=== PATIENT | male | born 1970 | race Caucasian/White ===

== ENCOUNTER 2018-07-21 10:59 | Emergency (ER) | payer BC ==
[2018-07-21 11:37] VITALS: BP 139/93
[2018-07-21] MEDS ORDERED: Sulfamethox/Trimethoprim DS 800/160* TAB PO ONE (11:51)
--- NOTE | 2018-07-21 11:53 | ED ---
Upper Extremity Pain - HPI Summary HPI Summary: 48 yr old male bitten on right tricep by bug three days ago. He has had progressive redness, some swelling over the right tricep area and some lymph nodes in right axilla. No fever, chills. He does not feel ill. No other complaints. - History of Current Complaint Chief Complaint: Toño Stated Complaint: SKIN CONCERN Time Seen by Provider: 07/21/18 11:40 - Allergies/Home Medications Allergies/Adverse Reactions: Allergies Allergy/AdvReac Type Severity Reaction Status Date / Time No Known Allergies Allergy Verified 07/21/18 11:29 Home Medications: Home Medications Bp Medication 1 tab PO DAILY 07/21/18 [History] Famotidine TAB* [Pepcid 20 MG TAB*] 20 mg PO DAILY 07/21/18 [History Confirmed 07/21/18] PMH/Surg Hx/FS Hx/Imm Hx Cardiovascular History: Reports: Hx Hypertension Infectious Disease History: No Infectious Disease History: Denies: Traveled Outside the [place] in Last 30 Days - Family History Known Family History: Positive: None - Social History Occupation: Unemployed Alcohol Use: 3-5 beer daily, but quit about 2 weeks ago Substance Use Type: Reports: None Smoking Status (MU): Heavy Every Day Tobacco Smoker Type: Cigarettes Amount Used/How Often: 3/4 PPD Review of Systems Constitutional: Negative Positive: Other - redness and swelling over the right tricep area All Other Systems Reviewed And Are Negative: Yes Physical Exam Triage Information Reviewed: Yes Vital Signs On Initial Exam: Initial Vitals Temp Pulse Resp BP Pulse Ox 98.1 F 83 14 139/93 100 07/21/18 11:31 07/21/18 11:31 07/21/18 11:31 07/21/18 11:31 07/21/18 11:31 Vital Signs Reviewed: Yes Appearance: Positive: Well-Appearing, No Pain Distress Skin: Positive: Other - redness about 2 inch diameter with induration right tricep area, no fluctuance. No erythema migrans rash. He has one tender lymph node right axilla. No streaking up the arm. Eyes: Positive: EOMI Neck: Positive: Nontender Respiratory/Lung Sounds: Positive: Clear to Auscultation, Breath Sounds Present Cardiovascular: Positive: RRR, Pulses are Symmetrical in both Upper and Lower Extremities - symmetric pulses both wrists.. Negative: Murmur Musculoskeletal: Positive: Strength/ROM Intact Neurological: Positive: Sensory/Motor Intact, Alert, Oriented to Person Place, Time, CN Intact II-III Psychiatric: Positive: Normal - Adrian Coma Scale Best Eye Response: 4 - Spontaneous Best Motor Response: 6 - Obeys Commands Best Verbal Response: 5 - Oriented Coma Scale Total: 15 Diagnostics - Vital Signs Vital Signs Temp Pulse Resp BP Pulse Ox 07/21/18 11:31 98.1 F 83 14 139/93 100 - Laboratory Lab Statement: Any lab studies that have been ordered have been reviewed, and results considered in the medical decision making process. Course/Dx - Course Course Of Treatment: 48 yr old male with cellulitis and possible early abscess right tricep. no fluctuance at this point. Rx Bactrim DS. Referred to primary care. - Diagnoses Provider Diagnoses: Cellulitis Discharge - Sign-Out/Discharge Documenting (check all that apply): Patient Departure All imaging exams completed and their final reports reviewed: No Studies - Discharge Plan Condition: Good Disposition: HOME Prescriptions: Sulfamethox/Trimethoprim DS* [Bactrim DS 800/160 TAB*] 1 tab PO BID #20 tab Patient Education Materials: Cellulitis (ED), Hypertension (ED) Referrals: No Primary Care Phys,NOPCP [Primary Care Provider] - [facility]Outside] - 2 Days - Billing Disposition and Condition Condition: GOOD Disposition: Home
== END 2018-07-21 12:20 | disposition home or self-care (01) ==
LOC: UCCORT 10:59
DX: L03.113 Cellulitis of right upper limb (principal); I10 Essential (primary) hypertension; F17.210 Nicotine dependence, cigarettes, uncomplicated
CPT/HCPCS: 99212; A9270-GY; G0463

== ENCOUNTER → 2020-01-24 11:11 | Emergency (ER) | payer SELFPAY ==
--- NOTE | 2020-01-24 13:40 | UC ---
Abdominal Pain Male HPI - HPI Summary HPI Summary: 49 yo with a hx of ulcer disease based on upper endoscopy 4 years ago. He is uncertain if he had H. pylori, thinks possible. He took PPI for some time, then transitioned to otc pepcid, but has daily symptoms most of the time. For the past 2 months, sx have increased with increased nocturnal pain, early satiety, weight loss. He continues to smoke although decreased to 1/2 ppd, has decreased alcohol to 2 beers every few days, but continues to drink a pot of coffee per day. Had emesis 2 weeks ago. States no hx of pancreatitis, and he has not been tested for gallstones. Pain occasionally radiates to the back, not always. Weight is low, tends to lose and gain, but reports no consistent weight loss. No dysphagia. No NSAID's, uses acetaminophen for aches and pains. - History of Current Complaint Chief Complaint: UCAbdominalPain Stated Complaint: ABD PAIN Time Seen by Provider: 01/24/20 13:28 Hx Obtained From: Patient Onset/Duration: Gradual Onset, Lasting Weeks Timing: Intermittent Episodes Lasting: Severity Initially: Moderate Severity Currently: Moderate Pain Intensity: 2 Location: Epigastric Radiates: Yes Radiates to: Back - on occasion Character: Burning, Sharp Aggravating Factor(s): Food Alleviating Factor(s): Meds Associated Signs And Symptoms: Positive: Cough, Diarrhea - stools are always loose. Negative: Diaphoresis, Fever, Chest Pain, Back Pain, Constipation, Blood in Stool, Urinary Symptoms, Decreased Appetite - Risk Factors Testicular Torsion: Negative Cardiac Risk Factors: Smoking, Family History - Allergies/Home Medications Allergies/Adverse Reactions: Allergies Allergy/AdvReac Type Severity Reaction Status Date / Time No Known Allergies Allergy Verified 01/24/20 11:56 Home Medications: Home Medications Bp Medication 1 tab PO DAILY 07/21/18 [History] Famotidine TAB* [Pepcid 20 MG TAB*] 20 mg PO TID PRN 07/21/18 [History Confirmed 07/21/18] Pantoprazole TAB * [Protonix TAB*] 40 mg PO DAILY #30 tab 01/24/20 [Rx] PMH/Surg Hx/FS Hx/Imm Hx - Additional Past Medical History Additional PMH: chronic smoking Previously Healthy: No GI/ History: Gastroesophageal Reflux, Ulcer - Surgical History Surgical History: Yes Surgery Procedure, Year, and Place: sinus surgery - Family History Known Family History: Positive: Cardiac Disease, Other - mother has gastritis - Social History Occupation: Employed Full-time Lives: With Family Alcohol Use: Occasionally Substance Use Type: None Smoking Status (MU): Heavy Every Day Tobacco Smoker Type: Cigarettes Amount Used/How Often: 1/2 ppd Household Exposure Type: Cigarettes Review of Systems All Other Systems Reviewed And Are Negative: Yes Constitutional: Positive: Fatigue, Other - malaise Skin: Positive: Negative Eyes: Positive: Negative ENT: Positive: Negative Respiratory: Positive: Cough Cardiovascular: Negative: Palpitations, Chest Pain Gastrointestinal: Positive: Abdominal Pain - epigastric, Vomiting - on occasion , Nausea Motor: Positive: Negative Neurovascular: Positive: Negative Musculoskeletal: Positive: Negative Neurological/Mental Status: Positive: Negative Psychological: Positive: Negative Is Patient Immunocompromised?: No Physical Exam Triage Information Reviewed: Yes Appearance: Ill-Appearing, Pain Distress - mild, Thin Vital Signs: Initial Vital Signs Temp 98.4 F 01/24/20 11:58 Pulse 79 01/24/20 11:58 Resp 16 01/24/20 11:58 BP 164/96 01/24/20 11:58 Pulse Ox 100 01/24/20 11:58 Eye Exam: Normal - no scleral icterus ENT: Positive: Pharynx normal, TMs normal Neck: Positive: Supple, Nontender, No Lymphadenopathy Respiratory: Positive: Lungs clear, Normal breath sounds, No respiratory distress Cardiovascular: Positive: RRR, No Murmur, Pulses Normal Abdomen Description: Positive: No Organomegaly, Soft, Other: - tenderness in epigastric area and medial liver margin. No tenderness to liver edge.. Negative : Distended, Guarding, Hepatomegaly, Peritoneal Signs Musculoskeletal Exam: Normal Neurological: Positive: Alert, Muscle Tone Normal Skin Exam: Normal Abd Pain Male Course/Dx - Course Course Of Treatment: likely has recurrent ulcer with risk factors. Advised needs lifestyle change with decrease in caffeine, alcohol and smoking, and will trial use of pantoprazole. Referral given to gi. States that he had normal labs with his primary doctor about 2 months ago, and defers repeating labs today. - Differential Dx/Clinical Impression Differential Diagnosis/HQI/PQRI: Gall Bladder Disease, Pancreatitis, Peptic Ulcer Disease Provider Diagnosis: Gastritis Discharge ED - Sign-Out/Discharge Documenting (check all that apply): Patient Departure All imaging exams completed and their final reports reviewed: No Studies - Discharge Plan Condition: Stable Disposition: HOME Prescriptions: Pantoprazole TAB * [Protonix TAB*] 40 mg PO DAILY #30 tab Patient Education Materials: Gastritis (ED) Forms: *Work Release Referrals: No Primary Care Phys,NOPCP [Primary Care Provider] - Tabatha England MD [Medical Doctor] - Additional Instructions: Your symptoms are highly suggestive of recurrent ulcer or gastritis. Lifestyle change is as important as medications: stopping smoking, alcohol and coffee are all important because of the impact on the stomach lining. Avoid fatty and fried foods and excess spices. Take patoprazole. Initially, take it twice a day for 2 or 3 days, then decrease to once daily. TAKE THE MEDICATION ON AN EMPTY STOMACH ABOUT 20 TO 30 MINUTES BEFORE EATING. Please call Dr. England to schedule an evaluation with him as soon as possible. - Billing Disposition and Condition Condition: STABLE Disposition: Home
[2020-01-24 14:10] VITALS: BP 172/105
== END | disposition home or self-care (01) ==
LOC: UCCORT 11:11
DX: K29.70 Gastritis, unspecified, without bleeding (principal); F17.210 Nicotine dependence, cigarettes, uncomplicated; R05 Cough; R19.7 Diarrhea, unspecified; K21.9 Gastro-esophageal reflux disease without esophagitis; Z87.11 Personal history of peptic ulcer disease; Z79.899 Other long term (current) drug therapy
CPT/HCPCS: 99212; G0463